=== PATIENT | female | born 1965 | race Caucasian/White ===

== ENCOUNTER 2024-06-17 16:12 | Inpatient (IN) | payer MEDICAID ==
[~2024-06-17] VITALS: Ht 160 cm; Wt 89.2 kg
[2024-06-17 15:00] VITALS: BP 121/81; PULSE 79; RESP 14; TEMP 98.2; O2SAT 95
[2024-06-17] MEDS ORDERED: magnesium sulf-water 4G/100mL 100 ML IV PRN (17:35)
[2024-06-17] MEDS ORDERED: magnesium sulf-water 2g/50mL 50 ML IV PRN (17:35)
[2024-06-17] MEDS ORDERED: magnesium Cl slow-release 64mg tablet PO PRN (17:35)
[2024-06-17] MEDS ORDERED: ondansetron/PF 4mg/2ml inj IV PRN (17:35)
[2024-06-17] MEDS ORDERED: potassium Cl 40MEQ/1/2NS 520ml 520 ML IV PRN (17:35)
[2024-06-17] MEDS ORDERED: mag hydrox/Alum hydrox/simeth 30ml oral suspension PO PRN (17:35)
[2024-06-17] MEDS ORDERED: magnesium hydroxide 30ml (MOM) UD suspension PO PRN (17:35)
[2024-06-17] MEDS ORDERED: potassium Cl 20 mEq SR tablet PO PRN ×2 (17:35)
[2024-06-17] MEDS ORDERED: acetaminophen 325mg tablet PO PRN (17:35)
[2024-06-17 18:00] VITALS: BP 112/72; PULSE 78; RESP 22; TEMP 98.2; O2SAT 97
[2024-06-17] MEDS ORDERED: FLUO-167 PO (18:19)
[2024-06-17] MEDS ORDERED: SEMA1.7P SQ (18:19)
[2024-06-17] MEDS ORDERED: PANT40TA54 PO (18:19)
[2024-06-17] MEDS ORDERED: SEMA2.4P SQ (18:19)
[2024-06-17] MEDS ORDERED: ALBU10.7 (18:19)
[2024-06-17] MEDS ORDERED: HYDR-3964 PO (18:19)
[2024-06-17] MEDS ORDERED: DICL100G59 TOP (18:19)
[2024-06-17] MEDS ORDERED: GABA-530 PO (18:19)
[2024-06-17] MEDS ORDERED: ARIP5TAB53 PO (18:19)
[2024-06-17] MEDS ORDERED: METO-395 PO (18:19)
[2024-06-17] MEDS ORDERED: ONDA-103 PO (18:19)
[2024-06-17 18:43] LABS: PROTHROMBIN TIME 10.9 SECONDS (9.0-12.0)
[2024-06-17 18:58] LABS: HEMOGLOBIN A1C 5.2 % (4.5-6.2)
[2024-06-17] MEDS: enoxaparin 40mg/0.4ml syringe SUBCUT SCH (19:08)
[2024-06-17] MEDS: docusate sod 100mg capsule PO SCH (19:42)
[2024-06-17] MEDS: K and/or MAG REPLACEMENT MC SCH (20:00)
[2024-06-18] VITALS (15 sets, daily range): BP systolic 98–129; BP diastolic 57–82; PULSE 66–99; RESP 10–22; TEMP 97.2–98.1; O2SAT 93–97
[2024-06-18 04:56] LABS: BASOPHILS % (AUTO) 0.6 % (0-1); EOSINOPHILS # (AUTO) 0.1 X10'3 (0-0.9); EOSINOPHILS % (AUTO) 0.9 % (0-6); HEMATOCRIT 41.9 % (35.0-45.0); HEMOGLOBIN 13.7 g/dl (12.0-16.0); LYMPHOCYTES # (AUTO) 2.8 X10'3 (1.1-4.8); LYMPHOCYTES % (AUTO) 36.1 % (21-51); MEAN CORPUSCULAR HEMOGLOBIN 27.8 PG (27.0-31.0); MEAN CORPUSCULAR HGB CONC 32.6 g/dL (33.0-36.5); MEAN CORPUSCULAR VOLUME 85.3 FL (78-98); MEAN PLATELET VOLUME 9.1 FL (7.4-10.4); MONOCYTES # (AUTO) 0.5 X10'3 (0-0.9); MONOCYTES % (AUTO) 6.9 % (2-12); NEUTROPHILS # (AUTO) 4.2 X10'3 (1.8-7.7); NEUTROPHILS % (AUTO) 55.5 % (42-75); PLATELET COUNT 235 X10'3 (140-440); RED BLOOD COUNT 4.91 X10'6 (4.20-5.60); RED CELL DISTRIBUTION WIDTH 13.6 % (11.5-14.5); WHITE BLOOD COUNT 7.6 X10'3 (4.5-11.0)
[2024-06-18 05:12] LABS: ALANINE AMINOTRANSFERASE 18 U/L (12-78); ALBUMIN 3.5 G/DL (3.4-5.0); ALBUMIN/GLOBULIN RATIO 0.9 (1.1-1.5); ALKALINE PHOSPHATASE 51 IU/L (46-116); ANION GAP 9 (8-16); ASPARTATE AMINO TRANSFERASE 12 U/L (10-37); BILIRUBIN,TOTAL 0.4 MG/DL (0.1-1.0); BLOOD UREA NITROGEN 16 MG/DL (7-18); CALCIUM 9.2 MG/DL (8.5-10.1); CHLORIDE 105 MMOL/L (99-107); CHOLESTEROL 199 MG/DL (0-200); CREATININE 0.89 MG/DL (0.40-0.90); GLUCOSE 94 MG/DL (70-104); HDL CHOLESTEROL 40 MG/DL (35-60); LDL CHOLESTEROL 125 MG/DL (50-100); MAGNESIUM 2.4 MG/DL (1.5-2.4); POTASSIUM 3.5 MMOL/L (3.5-5.1); SODIUM 141 MMOL/L (135-145); TOTAL CARBON DIOXIDE 27.1 MMOL/L (24-32); TOTAL PROTEIN 7.3 G/DL (6.4-8.2); TRIGLYCERIDES 170 MG/DL (20-135); eCRCL 58 ML/MIN; eGFR 65 ML/MIN
[2024-06-18] MEDS ORDERED: LIDOcaine 1% (10mg/ml) 2ml vial ONE (06:02)
[2024-06-18] MEDS ORDERED: verapamil 2.5 mg/ml inj IV ONE (06:02)
[2024-06-18] MEDS ORDERED: midazolam 1 mg/ML 2ml injection ONE (06:03)
[2024-06-18] MEDS ORDERED: heparin 1,000unit/ml 10ml vial 10 ML ONE (06:03)
[2024-06-18] MEDS ORDERED: iohexol 350 MG/ML 50ML vial IV ONE (06:03)
[2024-06-18] MEDS ORDERED: iohexol 350MG/ML 100ml bottle IV ONE (06:03)
[2024-06-18] MEDS ORDERED: fentaNYL/PF 50MCG/1 ML 2ML syringe ONE (06:03)
[2024-06-18] MEDS ORDERED: nitroGLYCERIN 500mcg/5mL D5W 5 ML IV ONE (06:04)
[2024-06-18] MEDS ORDERED: hydrocortisone sod succ/PF 100mg/2ml inj. ONE (06:29)
[2024-06-18] MEDS ORDERED: diphenhydrAMINE 50 mg/ml inj ONE (06:29)
[2024-06-18] MEDS: SEMAGLUTIDE SQ SCH (07:55)
[2024-06-18] MEDS ORDERED: albuterol 2.5 MG/3 ML nebule NEB PRN (07:55)
[2024-06-18] MEDS ORDERED: ALBU18HF2 IH (07:58)
[2024-06-18] MEDS ORDERED: pantoprazole 40mg Tablet.DR PO SCH ×2 (08:00→08:19)
[2024-06-18] MEDS ORDERED: ondansetron 4mg rapidly disintigrating tab PO PRN (08:00)
[2024-06-18] MEDS: isosorbide mononitrate 30mg tab.SR.24H PO SCH (08:18)
[2024-06-18] MEDS: FLUoxetine 20mg capsule PO SCH (08:35)
[2024-06-18] MEDS: gabapentin 100mg capsule PO SCH (08:35)
[2024-06-18] MEDS: aripiprazole 5mg tablet PO SCH (08:35)
[2024-06-18] MEDS: metoprolol succinate 25mg (24-HOUR) SR. Tablet PO SCH (08:35)
[2024-06-18] MEDS: normal saline 1000ml 1,000 ML IV ONE (08:38)
[2024-06-18] MEDS: HYDROcodone/acetaminophen 5mg/325mg tablet PO PRN (11:35)
[2024-06-18] MEDS ORDERED: ASPI-100 PO (13:11)
[2024-06-18] MEDS ORDERED: ROSU20TA73 PO ×2 (13:11→13:56)
[2024-06-18] MEDS ORDERED: ISOS30TA84 PO (13:11)
[2024-06-18] MEDS ORDERED: atorvastatin 20mg tablet PO SCH (21:00)
[2024-06-20] MEDS ORDERED: SEMAGLUTIDE SQ SCH (10:00)
== END 2024-06-18 16:30 | disposition home or self-care (01) | DRG 191 ==
LOC: PCU 3S 16:14 → UNDOADMIN 16:14 → PCU 3S 16:26
PROVIDERS: ADMIT Internal Medicine; ATTEND Internal Medicine
PROC: 4A023N7 Measurement of Cardiac Sampling and Pressure, Left Heart, Percutaneous Approach (ICD-10-PCS; principal; 2024-06-18)
PROC: B2111ZZ Fluoroscopy of Multiple Coronary Arteries using Low Osmolar Contrast (ICD-10-PCS; 2024-06-18)
PROC: B2151ZZ Fluoroscopy of Left Heart using Low Osmolar Contrast (ICD-10-PCS; 2024-06-18)
DX: I25.119 Atherosclerotic heart disease of native coronary artery with unspecified angina pectoris (principal); E66.9 Obesity, unspecified; K21.9 Gastro-esophageal reflux disease without esophagitis; E78.5 Hyperlipidemia, unspecified; I48.91 Unspecified atrial fibrillation; I10 Essential (primary) hypertension; Z88.5 Allergy status to narcotic agent; Z91.041 Radiographic dye allergy status; Z90.710 Acquired absence of both cervix and uterus; Z68.34 Body mass index [BMI] 34.0-34.9, adult
CPT/HCPCS: 36415; 71045; 76937; 80053; 80061; 83036; 83735; 83880; 84443; 85025; 85610; 87081; 93005; 93308; 93458; 93880; 99152; 99153; A6258; A6402; C1725; C1894; G0378; J1200; J1644; J1720; J2250; J3010; J3490; J7030; Q9967